=== PATIENT | female | born 1955 | race Caucasian/White ===

== ENCOUNTER 2018-06-15 06:39 | Day surgery (SDC) | payer BC ==
[2018-06-14 11:25] LABS: BASOPHILS % (AUTO) 0.2 % (0-1); EOSINOPHILS # (AUTO) 0.3 X10'3 (0-0.9); EOSINOPHILS % (AUTO) 2.9 % (0-6); HEMATOCRIT 47.2 % (35.0-45.0); HEMOGLOBIN 15.8 g/dl (12.0-16.0); LYMPHOCYTES # (AUTO) 1.8 X10'3 (1.1-4.8); LYMPHOCYTES % (AUTO) 16.5 % (21-51); MEAN CORPUSCULAR HEMOGLOBIN 31.5 PG (27.0-31.0); MEAN CORPUSCULAR HGB CONC 33.5 % (33.0-36.5); MEAN CORPUSCULAR VOLUME 93.8 FL (78-98); MEAN PLATELET VOLUME 8.4 FL (7.4-10.4); MONOCYTES # (AUTO) 0.3 X10'3 (0-0.9); MONOCYTES % (AUTO) 2.6 % (2-12); NEUTROPHILS # (AUTO) 8.5 X10'3 (1.8-7.7); NEUTROPHILS % (AUTO) 77.8 % (42-75); PLATELET COUNT 343 X10'3 (140-440); RED BLOOD COUNT 5.03 X10'6 (4.20-5.60); RED CELL DISTRIBUTION WIDTH 13.6 % (11.5-14.5); WHITE BLOOD COUNT 10.9 X10'3 (4.5-11.0)
[2018-06-14 11:42] LABS: ALBUMIN 3.4 G/DL (3.4-5.0); ANION GAP 8 (8-16); BLOOD UREA NITROGEN 10 MG/DL (7-18); CALCIUM 9.2 MG/DL (8.5-10.1); CHLORIDE 104 MMOL/L (99-107); CREATININE 0.77 MG/DL (0.40-0.90); GLUCOSE 85 MG/DL (70-104); POTASSIUM 4.2 MMOL/L (3.5-5.1); SODIUM 141 MMOL/L (135-145); TOTAL CARBON DIOXIDE 29.5 MMOL/L (24-32); eGFR 76 ML/MIN
[2018-06-14 11:44] LABS: INR 1.1 INR; PROTHROMBIN TIME 11.2 SECONDS (9.0-12.0)
[2018-06-15] VITALS (17 sets, daily range): BP systolic 87–159; BP diastolic 51–91
[~2018-06-15] VITALS: Ht 172.7 cm; Wt 117.6 kg
[2018-06-15] MEDS ORDERED: SOTA80TA73 PO (07:08)
[2018-06-15] MEDS ORDERED: LISI40TA4 PO (07:08)
[2018-06-15] MEDS ORDERED: CIPR-259 PO (07:08)
[2018-06-15] MEDS ORDERED: PARO20TA6 PO (07:08)
[2018-06-15] MEDS ORDERED: APIX5TAB3 PO (07:08)
[2018-06-15] MEDS ORDERED: ROSU20TA PO (07:08)
[2018-06-15] MEDS ORDERED: LEVO5TAB13 PO (07:08)
[2018-06-15] MEDS ORDERED: diphenhydrAMINE 25mg capsule PO PRN (07:15)
[2018-06-15] MEDS ORDERED: normal saline 1000ml 1,000 ML IV SCH (07:15)
[2018-06-15] MEDS ORDERED: LORazepam 0.5 MG tablet PO PRN (07:15)
[2018-06-15] MEDS ORDERED: morphine 10mg/ml inj. IV ONE (07:20)
[2018-06-15] MEDS ORDERED: MIDAZolam 5mg/ml 2ml vial IV ONE (07:20)
[2018-06-15] MEDS ORDERED: atropine 0.1mg/ml 10ml syringe IV ONE (07:20)
[2018-06-15] MEDS ORDERED: LORazepam 0.5 MG tablet PO ONE (07:20)
[2018-06-15] MEDS ORDERED: amiodarone in dextrose, iso-osm 150mg/100ml bag IV ONE (07:20)
== END 2018-06-15 12:47 | disposition home or self-care (01) ==
LOC: SSTAY O 06:39
PROVIDERS: ATTEND Internal Medicine Cardiovascular Disease
DX: I48.91 Unspecified atrial fibrillation (principal); E78.5 Hyperlipidemia, unspecified; I10 Essential (primary) hypertension; F41.9 Anxiety disorder, unspecified; Z79.899 Other long term (current) drug therapy; Z98.890 Other specified postprocedural states
CPT/HCPCS: 36415; 80048; 85025; 85610; 92960; 93005; J0282; J2250; J2270; J7030; J0461

== ENCOUNTER 2018-08-24 05:55 | Day surgery (SDC) | payer BC ==
[2018-08-23 10:27] LABS: BASOPHILS % (AUTO) 0.1 % (0-1); EOSINOPHILS # (AUTO) 0.2 X10'3 (0-0.9); EOSINOPHILS % (AUTO) 2.2 % (0-6); HEMATOCRIT 48.1 % (35.0-45.0); HEMOGLOBIN 16.1 g/dl (12.0-16.0); LYMPHOCYTES # (AUTO) 1.8 X10'3 (1.1-4.8); LYMPHOCYTES % (AUTO) 15.8 % (21-51); MEAN CORPUSCULAR HEMOGLOBIN 31.3 PG (27.0-31.0); MEAN CORPUSCULAR HGB CONC 33.6 % (33.0-36.5); MEAN CORPUSCULAR VOLUME 93.3 FL (78-98); MEAN PLATELET VOLUME 8.1 FL (7.4-10.4); MONOCYTES # (AUTO) 0.3 X10'3 (0-0.9); MONOCYTES % (AUTO) 2.6 % (2-12); NEUTROPHILS # (AUTO) 9.2 X10'3 (1.8-7.7); NEUTROPHILS % (AUTO) 79.3 % (42-75); PLATELET COUNT 349 X10'3 (140-440); RED BLOOD COUNT 5.15 X10'6 (4.20-5.60); RED CELL DISTRIBUTION WIDTH 13.9 % (11.5-14.5); WHITE BLOOD COUNT 11.6 X10'3 (4.5-11.0)
[2018-08-23 10:31] LABS: ALBUMIN 3.5 G/DL (3.4-5.0); ANION GAP 7 (8-16); BLOOD UREA NITROGEN 12 MG/DL (7-18); BUN/CREATININE RATIO 13.3 (6.6-38.0); CHLORIDE 103 MMOL/L (99-107); GLUCOSE 91 MG/DL (70-104); POTASSIUM 4.6 MMOL/L (3.5-5.1); SODIUM 138 MMOL/L (135-145); TOTAL CARBON DIOXIDE 27.8 MMOL/L (24-32); eGFR 63 ML/MIN
[2018-08-23 10:32] LABS: INR 1.1 INR; PROTHROMBIN TIME 10.9 SECONDS (9.0-12.0)
[~2018-08-24] VITALS: Ht 172.7 cm; Wt 115.6 kg
[2018-08-24] VITALS (17 sets, daily range): BP systolic 93–146; BP diastolic 41–88
[~2018-08-24 05:55] MED LIST: APIX5TAB3 PO; CIPR-259 PO; LEVO5TAB13 PO; LISI40TA4 PO; PARO20TA6 PO; ROSU20TA PO; SOTA80TA73 PO
[2018-08-24] MEDS ORDERED: FLEC100T2 PO (06:12)
[2018-08-24] MEDS ORDERED: METO100T7 PO (06:12)
[2018-08-24] MEDS ORDERED: amiodarone in dextrose, iso-osm 150mg/100ml bag IV ONE (06:15)
[2018-08-24] MEDS ORDERED: MIDAZolam 5mg/ml 2ml vial IV ONE (06:15)
[2018-08-24] MEDS ORDERED: atropine 0.1mg/ml 10ml syringe IV ONE (06:15)
[2018-08-24] MEDS ORDERED: morphine 10mg/ml inj. IV ONE (06:15)
[2018-08-24] MEDS ORDERED: diphenhydrAMINE 25mg capsule PO ONE (06:15)
[2018-08-24] MEDS ORDERED: normal saline 1000ml 1,000 ML IV SCH (06:15)
[2018-08-24] MEDS ORDERED: LORazepam 0.5 MG tablet PO ONE (06:15)
== END 2018-08-24 11:35 | disposition home or self-care (01) ==
LOC: SSTAY O 05:55
PROVIDERS: ATTEND Internal Medicine Cardiovascular Disease
DX: I48.0 Paroxysmal atrial fibrillation (principal); I10 Essential (primary) hypertension; E78.5 Hyperlipidemia, unspecified; E66.9 Obesity, unspecified; I45.2 Bifascicular block; F41.8 Other specified anxiety disorders; Z90.89 Acquired absence of other organs; Z68.38 Body mass index [BMI] 38.0-38.9, adult; Z87.09 Personal history of other diseases of the respiratory system; Z87.440 Personal history of urinary (tract) infections; Z79.01 Long term (current) use of anticoagulants; Z79.899 Other long term (current) drug therapy
CPT/HCPCS: 36415; 80048; 85025; 85610; 92960; 93005; J0282; J0461; J2250; J2270; J7030; Q0163